=== PATIENT | male | born 1965 | race Caucasian/White ===

== ENCOUNTER 2018-07-13 08:41 | Inpatient (IN) | payer OTHER ==
[2018-07-13 09:14] VITALS: BMI 25.7
--- NOTE | 2018-07-13 10:11 | HP ---
COWS - Scale Resting Pulse: 1= MS 81-100 Sweatin=Flushed/Facial Moisture Restless Observation: 3= Extraneous Movement Pupil Size: 1= Pupils >than Normal Bone or Joint Aches: 2= Severe Diffuse Aches Runny Nose/ Eye Tearin= Runny Nose/Eyes GI Upset > 30mins: 1= Stomach Cramp Tremor Observation: 0= None Yawning Observation: 0= None Anxiety or Irritability: 0= None Goose Flesh Skin: 0=Smooth Skin COWS Score: 12 CIWA Score Nausea/Vomitin Muscle Tremors: 1-None Visible, but [place] Anxiety: 3 Agitation: 1-Slight > Activity Paroxysmal Sweats: 1-Minimal Palms Moist Orientation: 0-Oriented Tacttile Disturbances: 0-None Auditory Disturbances: 0-None Visual Disturbances: 0-None Headache: 0-None Present CIWA-Ar Total Score: 8 - Admission Criteria OASAS Guidelines: Admission for Medically Managed Detox: Requires at least one of the followin. CIWA greater than 12 2. Seizures within the past 24 hours 3. Delirium tremens within the past 24 hours 4. Hallucinations within the past 24 hours 5. Acute intervention needed for co occurring medical disorder 6. Acute intervention needed for co occurring psychiatric disorder 7. Severe withdrawal that cannot be handled at a lower level of care (continued vomiting, continued diarrhea, abnormal vital signs) requiring intravenous medication and/or fluids 8. Admission ROS [facility] Allergies/Adverse Reactions: Allergies Allergy/AdvReac Type Severity Reaction Status Date / Time No Known Allergies Allergy Verified 07/13/18 09:17 History of Present Illness: Patient here for heroin detox. Last use was yesterday morning. Use 5-6 bags / day. Using for the last 15 years. On methadone program, stopped going one month ago, was in program for 1 year, program [address]. Denies overdose. IVDU in jamar UE and inhalation. gets needle from [facility], denies sharing , + re-using , R UE 2 d ago w/ current swelling R UE . EtOH: 6 pack beer/ day. drinking for the last 25 years. last drink yesterday 1 six pack of beer +blackouts. denies seizures, falls. usually first drink in the early afternoon. PCP: occasional use, last use a couple of days ago. cannabis -occasional use Utox: + JULIA, MOP. denies cocaine use tobacco: 2-3 cigarettes per day, took up smoking at age 47. PMHx: denies PSx: denies Psych: denies Sx: unemployed, [facility]. incarcerated and released 1 year ago drug related charges ( sale ) lifetime incarceration5 years , currently denies legal issues . 1 son, not in contact. funds habit with panhandling, stealing , Exam Limitations: No Limitations - Ebola screening Have you traveled outside of the country in the last 21 days: No Have you had contact with anyone from an Ebola affected area: No Have you been sick,other than usual withdrawal symptoms: No Do you have a fever: No - Review of Systems Constitutional: Chills EENT: reports: Other (denies vision isues, denies dysphagia) Respiratory: reports: No Symptoms reported Cardiac: reports: No Symptoms Reported GI: reports: No Symptoms Reported : reports: No Symptoms Reported Musculoskeletal: reports: Muscle Pain Integumentary: reports: No Symptoms Reported Neuro: reports: No Symptoms reported Endocrine: reports: No Symptoms Reported Hematology: reports: No Symptoms Reported Psychiatric: reports: Orientated x3 Patient History - Patient Medical History Hx Asthma: No Hx Chronic Obstructive Pulmonary Disease (COPD): No Hx Cardiac Disorders: No Hx Hypertension: No Hx Seizures: No Hx Diabetes: No Hx Gastrointestinal Disorders: No Hx Genitourinary Disorders: No Hx Sexually Transmitted Disorders: No Hx Renal Disease (ESRD): No Hx Depression: No Hx Suicide Attempt: No Hx Schizophrenia: No - Patient Surgical History Past Surgical History: No Hx Neurologic Surgery: No Hx Cataract Extraction: No Hx Cardiac Surgery: No Hx Lung Surgery: No Hx Breast Surgery: No Hx Breast Biopsy: No Hx Abdominal Surgery: No Hx Appendectomy: No Hx Cholecystectomy: No Hx Genitourinary Surgery: No Hx Section: No Hx Orthopedic Surgery: No Anesthesia Reaction: No - PPD History Previous Implant?: Yes Documented Results: Negative w/o proof Results: NEGATIVE - Smoking Cessation Smoking history: Current some day smoker Aproximately how many cigarettes per day: 3 Hx Chewing Tobacco Use: No Initiated information on smoking cessation: No - Substances Abused Heroin Route: Injection Frequency: Daily Amount used: 5-6 BAGS DAILY Age of first use: 37 Date of Last Use: 07/12/18 Alcohol Route: Oral Frequency: Daily Amount used: 6-8 CANS OF BEER Age of first use: 17 Date of Last Use: 07/12/18 Family Disease History - Family Disease History Family Disease History: Other: Father (A & W), Mother (A & W), Son (A & W) Admission Physical Exam S - Vital Signs Vital Signs: Vital Signs - 24 hr 07/13/18 09:06 Temperature 98.8 F Pulse Rate 89 Respiratory 16 Rate Blood Pressure 139/83 - Physical General Appearance: Yes: Nourished, Disheveled, Moderate Distress HEENTM: Yes: EOMI, Other (anisocoria , heterochromia iridium) Respiratory: Yes: Chest Non-Tender, Lungs Clear, Normal Breath Sounds Neck: Yes: No masses,lesions,Nodules, Trachea in good position Breast: Yes: Breast Exam Deferred Cardiology: Yes: Regular Rhythm, Regular Rate, S1, S2 Abdominal: Yes: Normal Bowel Sounds, Non Tender, Soft Genitourinary: Yes: Within Normal Limits Back: Yes: Normal Inspection Musculoskeletal: Yes: full range of Motion, Gait Steady Extremities: Yes: Erythema, Inflammation, Other (R UE large antecubital abscess w/ edema/ erythema) Neurological: Yes: Alert, Motor Strength 5/5 Integumentary: Yes: Erythema - Addiitonal Findings: patient sent to [facility] ED , returned 3:18 pm , R antecubital abscess lanced , ED instructions ; followup in 2 days , meds Keflex q 8 hrs , Bactrim q 12 hrs x 10 d - Diagnostic (1) Opioid dependence Current Visit: No Status: Acute Qualifiers: Substance use status: with unspecified opioid-induced disorder Qualified Code(s): F11.29 - Opioid dependence with unspecified opioid-induced disorder (2) Alcohol dependence Current Visit: Yes Status: Acute Qualifiers: Substance use status: in withdrawal (3) Nicotine dependence Current Visit: Yes Status: Chronic Qualifiers: Nicotine product type: cigarettes (4) PCP (phencyclidine) abuse Current Visit: Yes Status: Chronic (5) Cellulitis and abscess of upper arm and forearm Current Visit: Yes Status: Acute [facility] Breath Alcohol Content Breath Alcohol Content: 0 Urine Drug Screen - Results Drug Screen Negative: No Urine Drug Screen Results: JULIA-Cocaine, OXY-Oxycodone
[2018-07-13] MEDS ORDERED: guaiFENesin/D-METHORPHAN HB 10 ML UNIT-DOSE CUPS PO PRN (15:21)
[2018-07-13] MEDS ORDERED: MAG HYDROX/AL HYDROX/SIMETH 30 ML UNIT-DOSE CUP PO PRN (15:21)
[2018-07-13] MEDS ORDERED: MAGNESIUM CITRATE 300 ML BOTTLE PO PRN (15:21)
[2018-07-13] MEDS ORDERED: MAGNESIUM HYDROX 2400MG/30ML ORAL SUSPENSION 30 ML CUP PO PRN (15:21)
[2018-07-13] MEDS ORDERED: IBUPROFEN 400 MG TABLET (FP) PO PRN (15:21)
[2018-07-13] MEDS ORDERED: MENTHOL/PHENOL 1 EACH UD MM PRN (15:21)
[2018-07-13] MEDS ORDERED: P-EPHED 60MG/TRIPROLIDI 2.5MG TABLET PO PRN (15:21)
[2018-07-13] MEDS ORDERED: ACETAMINOPHEN 325 MG TABLET (FP) PO PRN (15:21)
[2018-07-13] MEDS ORDERED: NICOTINE POLACRILEX 2 MG GUM BC PRN (15:21)
[2018-07-13] MEDS ORDERED: CEPHALEXIN MONOHYDRATE 500 MG CAPSULE (UD) PO SCH ×2 (15:30→17:30)
[2018-07-13] MEDS ORDERED: METHADONE HCL 10 MG TABLET (FOR DETOX USE ONLY) PO ONE ×2 (16:00→23:00)
[2018-07-13] MEDS: diazePAM 5 MG TABLET PO PRN (16:54)
[2018-07-13] MEDS: SULFAMETHOXAZOLE/TRIMETHOPRIM 800MG/160MG D.S. TABLET PO SCH (22:41)
[2018-07-13] MEDS: MELATONIN 5 MG TABLETS PO PRN (22:41)
[2018-07-13] MEDS: CEPHALEXIN MONOHYDRATE 500 MG CAPSULE (UD) PO SCH (22:41)
[2018-07-13] MEDS: diazePAM 5 MG TABLET PO SCH (22:41)
[2018-07-13] MEDS: THIAMINE HCL 100 MG TABLET (FP) PO SCH (22:41)
[2018-07-14] MEDS: CEPHALEXIN MONOHYDRATE 500 MG CAPSULE (UD) PO SCH ×3 (06:42→23:35)
[2018-07-14] MEDS: diazePAM 5 MG TABLET PO SCH ×3 (06:43→23:36)
[2018-07-14] MEDS ORDERED: METHADONE HCL 10 MG TABLET (FOR DETOX USE ONLY) PO SCH (10:00)
[2018-07-14 10:51] LABS: ALBUMIN 2.9 g/dl (3.4-5.0); ALK PHOS 69 U/L (45-117); ANION GAP 8 MMOL/L (8-16); BILIRUBIN,TOTAL 0.4 mg/dL (0.2-1); BLOOD UREA NITROGEN 12 mg/dL (7-18); CALCIUM 9.5 mg/dL (8.5-10.1); CHLORIDE 108 mmol/L (98-107); CO2 27 mmol/L (21-32); CREATININE 0.9 mg/dL (0.55-1.3); GLUCOSE,RANDOM 114 mg/dL (74-106); POTASSIUM 4.1 mmol/L (3.5-5.1); SGOT/AST 15 U/L (15-37); SGPT/ALT 18 U/L (13-61); SODIUM 143 mmol/L (136-145); TOT PROT 6.4 g/dl (6.4-8.2)
[2018-07-14] MEDS: PRENATAL VITAMINS W/ FOLIC ACID TABLET (FP) PO SCH (10:59)
[2018-07-14] MEDS: SULFAMETHOXAZOLE/TRIMETHOPRIM 800MG/160MG D.S. TABLET PO SCH ×2 (10:59→23:35)
[2018-07-14 12:13] LABS: HEMATOCRIT 37.3 % (35.4-49); HEMOGLOBIN 12.7 GM/dL (11.7-16.9); MCH 31.8 pg (25.7-33.7); MEAN CELL VOLUME 93.6 fl (80-96); MEAN PLT VOLUME 8.7 fl (7.5-11.1); PLATELET COUNT 231 K/MM3 (134-434); RBC 3.99 M/mm3 (4.00-5.60); RDW 14.3 % (11.9-15.9); WHITE BLOOD COUNT 5.4 K/mm3 (4.0-10.0)
--- NOTE | 2018-07-14 15:07 | PN ---
[facility] CIWA - CIWA Score Nausea/Vomitin-No Nausea/No Vomiting Muscle Tremors: 1-None Visible, but [place] Anxiety: 0-No Anxiety, at Ease Agitation: 0-Normal Activity Paroxysmal Sweats: No Perspiration Orientation: 0-Oriented Tacttile Disturbances: 0-None Auditory Disturbances: 0-None Visual Disturbances: 0-None Headache: 0-None Present CIWA-Ar Total Score: 1 [facility] COWS - Scale Resting Pulse: 0= [place] 80 or Below Sweatin= No chills or Flushing Restless Observation: 0= Sits Still Pupil Size: 0= Normal to Room Light Bone or Joint Aches: 0= None Runny Nose/ Eye Tearin= None GI Upset > 30mins: 0= None Tremor Observation of Outstretched Hands: 0= None Yawning Observation: 0= None Anxiety or Irritability: 0= None [facility] Progress Note (SOAP) Subjective: when seen this morning, pt doing well, says Sx controlled with medications. O: Vital Signs - 24 hr 07/13/18 07/13/18 07/13/18 18:08 21:01 22:41 Temperature 98.1 F 98.4 F 98.1 F Pulse Rate 89 83 84 Respiratory 18 19 18 Rate Blood Pressure 143/78 98/58 L 137/77 07/14/18 07/14/18 07/14/18 03:30 08:10 09:18 Temperature 97.9 F 97.2 F L Pulse Rate 77 67 Respiratory 18 18 18 Rate Blood Pressure 103/57 L 102/72 07/14/18 13:47 Temperature 97.3 F L Pulse Rate 98 H Respiratory 18 Rate Blood Pressure 107/79 Laboratory Tests 07/14/18 07/14/18 07:00 07:00 WBC 5.4 RBC 3.99 L Hgb 12.7 Hct 37.3 MCV 93.6 MCH 31.8 MCHC 34.0 RDW 14.3 Plt Count 231 MPV 8.7 Sodium 143 Potassium 4.1 Chloride 108 H Carbon Dioxide 27 Anion Gap 8 BUN 12 Creatinine 0.9 Creat Clearance w eGFR > 60 Random Glucose 114 H Calcium 9.5 Total Bilirubin 0.4 AST 15 ALT 18 Alkaline Phosphatase 69 Total Protein 6.4 Albumin 2.9 L a/p: continue current detox protocols- pt doing well
[2018-07-14] MEDS: THIAMINE HCL 100 MG TABLET (FP) PO SCH (23:36)
[2018-07-15] MEDS: CEPHALEXIN MONOHYDRATE 500 MG CAPSULE (UD) PO SCH ×3 (05:38→22:51)
[2018-07-15] MEDS: diazePAM 5 MG TABLET PO PRN (05:38)
[2018-07-15] MEDS ORDERED: METHADONE HCL 5 MG TABLET (FOR DETOX USE ONLY) PO SCH (10:00)
[2018-07-15] MEDS: diazePAM 5 MG TABLET PO SCH ×2 (10:19→22:51)
[2018-07-15] MEDS: SULFAMETHOXAZOLE/TRIMETHOPRIM 800MG/160MG D.S. TABLET PO SCH ×2 (10:19→22:51)
[2018-07-15] MEDS: PRENATAL VITAMINS W/ FOLIC ACID TABLET (FP) PO SCH (10:19)
[2018-07-15] MEDS ORDERED: BACITRACIN 0.9 GM PACKET TP ONE (13:10)
--- NOTE | 2018-07-15 14:40 | PN ---
[facility] CIWA - CIWA Score Nausea/Vomitin-No Nausea/No Vomiting Muscle Tremors: None Anxiety: 3 Agitation: 0-Normal Activity Paroxysmal Sweats: 2 Orientation: 0-Oriented Tacttile Disturbances: 1-Very Mild Itch/Numbness Auditory Disturbances: 0-None Visual Disturbances: 1-Very Mild Sensitivity Headache: 0-None Present CIWA-Ar Total Score: 7 S COWS - Scale Resting Pulse: 1= [place] 81-100 Sweatin= Chills/Flushing Restless Observation: 0= Sits Still Pupil Size: 0= Normal to Room Light Bone or Joint Aches: 0= None Runny Nose/ Eye Tearin= Nasal Congestion GI Upset > 30mins: 0= None Tremor Observation of Outstretched Hands: 0= None Yawning Observation: 1= 1-2x During Session Anxiety or Irritability: 2=Irritable/Anxious Goose Flesh Skin: 0=Smooth Skin COWS Score: 6 S Progress Note (SOAP) Subjective: Sweating, Anxious, Fatigue. Objective: PATIENT A & O X 3. IN NO ACUTE DISTRESS. 07/15/18 14:42 Vital Signs Temperature 98.1 F 07/15/18 13:18 Pulse Rate 98 H 07/15/18 13:18 Respiratory Rate 18 07/15/18 13:18 Blood Pressure 136/91 07/15/18 13:18 O2 Sat by Pulse Oximetry (%) Laboratory Tests 07/14/18 07/14/18 07/14/18 07:00 07:00 07:00 WBC 5.4 RBC 3.99 L Hgb 12.7 Hct 37.3 MCV 93.6 MCH 31.8 MCHC 34.0 RDW 14.3 Plt Count 231 MPV 8.7 Sodium 143 Potassium 4.1 Chloride 108 H Carbon Dioxide 27 Anion Gap 8 BUN 12 Creatinine 0.9 Creat Clearance w eGFR > 60 Random Glucose 114 H Calcium 9.5 Total Bilirubin 0.4 AST 15 ALT 18 Alkaline Phosphatase 69 Total Protein 6.4 Albumin 2.9 L RPR Titer Nonreactive LABS NOTED. Assessment: 07/15/18 14:42 WITHDRAWAL SYMPTOMS. ABSCESS (DRAINED) / CELLULITIS OF RIGHT ARM (ANTECUBITAL AREA). 07/15/18 14:43 Plan: CONTINUE DETOX. INCREASE DAILY PO FLUID INTAKE. WOUND IN ANTECUBITAL AREA OF RIGHT ARM NOTED (ABSCESS DRAINED AT [facility] ON 07/13/2018). ERYTHEMA, SWELLING NOTED IN SITE SURROUNDING WOUND. DRAINAGE NOTED ON GAUZE COVERING WOUND AT THIS TIME. NO SWELLING, ERYTHEMA, OR DISCAHRGE NOTED ANYWHERE ELSE ON RIGHT ARM OR HAND. PATIENT DENIES PAIN AT WOUND SITE AND ANYWEHERE ELSE ON RIGHT ARM. DRESSING INSTRUCTIONS / CARE: Q 12 HOURS: CLEAN WOUND WITH NORMAL SALINE, THEN PACK WOUND WITH IODOFORM AND THEN COVER WITH GAUZE AND MEDICAL TAPE. NOTE: IODOFORM NOT AVAILABLE ON DETOX UNIT AT THIS TIME, WILL BE AVAILABLE LATER ON IN DAY. x 1 WOUND CARE FOR THIS TIME: CLEAN WOUND WITH NORMAL SALINE, THEN APPLY BACITRACIN, THEN COVER WITH GAUZE AND MEDICAL TAPE. WOUND CARE WITH IODOFORM TO COMMENCE Q12 HOURS STARTING THIS EVENING.
[2018-07-15] MEDS: THIAMINE HCL 100 MG TABLET (FP) PO SCH (22:50)
[2018-07-15] MEDS: MELATONIN 5 MG TABLETS PO PRN (22:51)
[2018-07-16] MEDS: CEPHALEXIN MONOHYDRATE 500 MG CAPSULE (UD) PO SCH ×3 (05:50→22:39)
[2018-07-16] MEDS ORDERED: METHADONE HCL 10 MG TABLET (FOR DETOX USE ONLY) PO SCH (10:00)
[2018-07-16] MEDS: PRENATAL VITAMINS W/ FOLIC ACID TABLET (FP) PO SCH (11:55)
[2018-07-16] MEDS: SULFAMETHOXAZOLE/TRIMETHOPRIM 800MG/160MG D.S. TABLET PO SCH ×2 (11:55→22:39)
[2018-07-16] MEDS: diazePAM 5 MG TABLET PO SCH ×2 (11:55→22:39)
--- NOTE | 2018-07-16 14:36 | PN ---
[facility] Progress Note (SOAP) Subjective: i"m better wound some draining Objective: 07/16/18 14:42 Vital Signs Temperature 97.0 F L 07/16/18 14:10 Pulse Rate 68 07/16/18 14:10 Respiratory Rate 18 07/16/18 14:10 Blood Pressure 113/72 07/16/18 14:10 O2 Sat by Pulse Oximetry (%) Laboratory Tests 07/14/18 07/14/18 07/14/18 07:00 07:00 07:00 WBC 5.4 RBC 3.99 L Hgb 12.7 Hct 37.3 MCV 93.6 MCH 31.8 MCHC 34.0 RDW 14.3 Plt Count 231 MPV 8.7 Sodium 143 Potassium 4.1 Chloride 108 H Carbon Dioxide 27 Anion Gap 8 BUN 12 Creatinine 0.9 Creat Clearance w eGFR > 60 Random Glucose 114 H Calcium 9.5 Total Bilirubin 0.4 AST 15 ALT 18 Alkaline Phosphatase 69 Total Protein 6.4 Albumin 2.9 L RPR Titer Nonreactive pt aox3 in nad rt arm abscess draining slightly wound packed with iodoform and dressing reapplied Assessment: 07/16/18 14:43 withdrawal sx's rt arm abscess improving cont. AB's and wound care 07/16/18 14:44 Plan: cont detox increase fluids
[2018-07-16] MEDS: THIAMINE HCL 100 MG TABLET (FP) PO SCH (22:39)
[2018-07-17] MEDS ORDERED: METHADONE HCL 5 MG TABLET (FOR DETOX USE ONLY) PO SCH (06:00)
[2018-07-17] MEDS: CEPHALEXIN MONOHYDRATE 500 MG CAPSULE (UD) PO SCH ×3 (06:51→22:59)
[2018-07-17] MEDS ORDERED: diazePAM 5 MG TABLET PO SCH (10:00)
[2018-07-17] MEDS: SULFAMETHOXAZOLE/TRIMETHOPRIM 800MG/160MG D.S. TABLET PO SCH ×2 (11:08→22:59)
[2018-07-17] MEDS: PRENATAL VITAMINS W/ FOLIC ACID TABLET (FP) PO SCH (11:08)
--- NOTE | 2018-07-17 13:06 | PN ---
[facility] Progress Note (SOAP) Subjective: Mild shakes and sweats Objective: 07/17/18 13:03 Vital Signs 07/17/18 07/17/18 06:45 09:21 Temperature 97.5 F L 98.1 F Pulse Rate 71 72 Respiratory 18 18 Rate Blood Pressure 101/62 108/66 Laboratory Last Values WBC 5.4 K/mm3 (4.0-10.0) 07/14/18 07:00 RBC 3.99 M/mm3 (4.00-5.60) L 07/14/18 07:00 Hgb 12.7 GM/dL (11.7-16.9) 07/14/18 07:00 Hct 37.3 % (35.4-49) 07/14/18 07:00 MCV 93.6 fl (80-96) 07/14/18 07:00 MCH 31.8 pg (25.7-33.7) 07/14/18 07:00 MCHC 34.0 g/dl (32.0-35.9) 07/14/18 07:00 RDW 14.3 % (11.9-15.9) 07/14/18 07:00 Plt Count 231 K/MM3 (134-434) 07/14/18 07:00 MPV 8.7 fl (7.5-11.1) 07/14/18 07:00 Sodium 143 mmol/L (136-145) 07/14/18 07:00 Potassium 4.1 mmol/L (3.5-5.1) 07/14/18 07:00 Chloride 108 mmol/L (98-107) H 07/14/18 07:00 Carbon Dioxide 27 mmol/L (21-32) 07/14/18 07:00 Anion Gap 8 MMOL/L (8-16) 07/14/18 07:00 BUN 12 mg/dL (7-18) 07/14/18 07:00 Creatinine 0.9 mg/dL (0.55-1.3) 07/14/18 07:00 Creat Clearance w eGFR > 60 (>60) 07/14/18 07:00 Random Glucose 114 mg/dL (74-106) H 07/14/18 07:00 Calcium 9.5 mg/dL (8.5-10.1) 07/14/18 07:00 Total Bilirubin 0.4 mg/dL (0.2-1) 07/14/18 07:00 AST 15 U/L (15-37) 07/14/18 07:00 ALT 18 U/L (13-61) 07/14/18 07:00 Alkaline Phosphatase 69 U/L (45-117) 07/14/18 07:00 Total Protein 6.4 g/dl (6.4-8.2) 07/14/18 07:00 Albumin 2.9 g/dl (3.4-5.0) L 07/14/18 07:00 RPR Titer Nonreactive (NONREACTIVE) 07/14/18 07:00 Labs noted, no panic values Right arm abscess, wound clean, small drainage, no odor, mild marti-wound erythema Assessment: 07/17/18 13:04 Withdrawal sx Resolving right arm abscess Plan: Continue detox Continue local wound care
[2018-07-17] MEDS: THIAMINE HCL 100 MG TABLET (FP) PO SCH (22:59)
[2018-07-18] MEDS: CEPHALEXIN MONOHYDRATE 500 MG CAPSULE (UD) PO SCH (05:52)
[2018-07-18] MEDS: SULFAMETHOXAZOLE/TRIMETHOPRIM 800MG/160MG D.S. TABLET PO SCH (09:15)
[2018-07-18] MEDS: PRENATAL VITAMINS W/ FOLIC ACID TABLET (FP) PO SCH (09:16)
[2018-07-18 09:29] VITALS: BP 114/73; PULSE 76; TEMP 96.4
--- NOTE | 2018-07-18 16:21 | DS ---
[facility] Discharge Summary Admission Date: 07/13/18 Discharge Date: 07/18/18 - History Present History: Alcohol Dependence Additional Comments: pt completed detox. Says he needs to go to [place] today to see his mother before going to rehab tomorrow. Says did well with detox. Arm abscess stable- f/u at rehab - Physical Exam Results Vital Signs: Vital Signs Temperature 96.4 F L 07/18/18 09:28 Pulse Rate 76 07/18/18 09:28 Respiratory Rate 16 07/18/18 09:28 Blood Pressure 114/73 07/18/18 09:28 O2 Sat by Pulse Oximetry (%) - Treatment Hospital Course: Detox Protocol Followed, Detoxed Safely, Responded well, Discharged Condition Good, Rehab Referral Accepted - Medication Discharge Medications: Ambulatory Orders Cephalexin Monohydrate [Keflex -] 500 mg PO Q8H #30 capsule 07/13/18 Sulfamethoxazole/Trimethoprim [Bactrim Ds -] 1 tab PO BID #20 tablet 07/13/18 - AMA Did Patient Leave Against Medical Advice: No
== END 2018-07-18 09:26 | disposition home or self-care (01) | DRG 773 ==
LOC: YASAS 08:41 → Y6N 15:39
PROVIDERS: ADMIT Neuromusculoskeletal Medicine & OMM; ATTEND Neuromusculoskeletal Medicine & OMM
PROC: HZ2ZZZZ Detoxification Services for Substance Abuse Treatment (ICD-10-PCS; principal; 2018-07-13)
DX: F11.23 Opioid dependence with withdrawal (principal); F10.230 Alcohol dependence with withdrawal, uncomplicated; F16.20 Hallucinogen dependence, uncomplicated; F17.210 Nicotine dependence, cigarettes, uncomplicated; L03.113 Cellulitis of right upper limb; L02.413 Cutaneous abscess of right upper limb
CPT/HCPCS: 36415; 80053; 85027; 86593

== ENCOUNTER 2018-07-13 11:14 | Emergency (ER) | payer OTHER ==
[2018-07-13 11:22] VITALS: TEMP 99; BMI 25.7
--- NOTE | 2018-07-13 11:33 | PDOC ---
History of Present Illness - General Chief Complaint: Wound Stated Complaint: ABSCESS Time Seen by Provider: 07/13/18 11:32 History Source: Patient Exam Limitations: No Limitations - History of Present Illness Initial Comments: 07/13/18 12:39 52 YOM with ETOH and heroin abuse presenting from [facility] with right arm abscess. Right forearm abscess x 2 days, after injecting heroin in the area. Increased in size and pain. No f/c, AP, n/v. No meds taken. Allergies: NKA Past Medical History: polysubstance abuse. Social history: [facility]. h/o ETOH and heroin abuse. Surgical history: noncontributory. ROS Constitutional: no fevers or chills. Gastrointestinal: no abdominal pain, nausea or vomiting. MUSCULOSKELETAL: No joint pain and swelling. No neck or back pain. +arm pain. SKIN: +wound, redness, swelling and pain. Hematologic: no easy bruising/bleeding. NEUROLOGIC: No weakness, numbness or tingling. Allergic/Immunologic: no allergies All other systems reviewed and negative, or as documented in HPI. PE: General: Well appearing, awake and alert, NAD. Resp: normal and even respirations, no respiratory distress CVS: 2+ peripheral pulses throughout, no peripheral edema Abdomen: soft, NTND, no peritoneal signs. MSK: KING x4, ROM intact, though limited in Right elbow flex/extension 2/2 pain and swelling. No clubbing or cyanosis. normal bulk and tone. Extremities: +right AC fossa with large fluctuant abscess, with erythema, warmth , swelling and tenderness Neuro: alert; sensation grossly intact. Manager [employer] strength 5/5. 5/5 elbow flex/ extension. Skin: warm and well perfused, cap refill <2 sec, +abscess in right AC fossa. Past History - Past Medical History Allergies/Adverse Reactions: Allergies Allergy/AdvReac Type Severity Reaction Status Date / Time No Known Allergies Allergy Verified 07/13/18 09:17 Home Medications: Ambulatory Orders Cephalexin Monohydrate [Keflex -] 500 mg PO Q8H #30 capsule 07/13/18 Sulfamethoxazole/Trimethoprim [Bactrim Ds -] 1 tab PO BID #20 tablet 07/13/18 Asthma: No Cardiac Disorders: No COPD: No Diabetes: No GI Disorders: No Disorders: No HTN: No Kidney Stones: No Seizures: No - Surgical History Abdominal Surgery: No Appendectomy: No Cardiac Surgery: No Cholecystectomy: No Lung Surgery: No Neurologic Surgery: No Orthopedic Surgery: No - Reproductive History Testicular Surgery: No - Immunization History Immunization Up to Date: Yes - Suicide/Smoking/Psychosocial Hx Smoking History: Current every day smoker Number of Cigarettes Smoked Daily: 3 Information on smoking cessation initiated: Yes Hx Alcohol Use: Yes Drug/Substance Use Hx: Yes (HEROIN) Hx Substance Use Treatment: Yes (LAST TREATMENET AT [facility] APRIL 2018) *Physical Exam - Vital Signs Last Vital Signs Temp Pulse Resp BP Pulse Ox 99.0 F 86 18 125/78 97 07/13/18 11:17 07/13/18 11:17 07/13/18 11:17 07/13/18 11:17 07/13/18 11:17 Moderate Sedation - Procedure Monitoring Vital Signs: Procedure Monitoring Vital Signs Temperature 99.0 F 07/13/18 11:17 Pulse Rate 86 07/13/18 11:17 Respiratory Rate 18 07/13/18 11:17 Blood Pressure 125/78 07/13/18 11:17 O2 Sat by Pulse Oximetry (%) 97 07/13/18 11:17 Procedures - Bedside Ultrasound Bedside Ultrasound: Skin Remarks: 07/13/18 12:40 POCUS MSK performed at bedside for right forearm/AC fossa; views obtained: right AC, transverse and sagittal views. findings include cobblestoning and moderate fluid collection, irregular contours into soft tissue with Swirl sign. Impression: right arm/AC fossa abscess and cellulitis. Medical Decision Making - Medical Decision Making 07/13/18 12:41 hpi as documented VS wnl. no fever, nontoxic, well appearing. abscess and cellulilitis confirmed on ultrasound at bedside, on right AC fossa and arm. Xray neg for FB or bony abnormalities. I&D with resident, see separate note, wound culture sent keflex and bactrim for abx coverage due to extensive cellulitis and large abscess >5cm circumferentially monitor for fevers, pain control, f/u wound cultures and avoid IV and heroin use with risk of infection and contamination. pt verbalized understanding of impression and plan. return in 2 days for wound packing change and clinical recheck. area demarcated of erythema for close monitoring of improvement/progression. DC back to [facility]. with instructions, dispensed abx to their pharmacy. 07/13/18 13:33 *DC/Admit/Observation/Transfer Diagnosis at time of Disposition: Abscess, Right arm cellulitis, Opioid dependence - Discharge Dispostion Disposition: HOME - Prescriptions Prescriptions: Cephalexin Monohydrate [Keflex -] 500 mg PO Q8H #30 capsule Sulfamethoxazole/Trimethoprim [Bactrim Ds -] 1 tab PO BID #20 tablet - Referrals Referrals: [facility] [place] [Provider Group] - Patient Instructions Printed Discharge Instructions: DI for Wound Infection, DI for Incision and Drainage of a Skin Abscess Additional Instructions: please follow up in our emergency department in 48 hours (2 days) for wound check. this must happen to ensure there is proper wound healing. please take your antibiotics as prescribed. please return to the emergency department if you have worsening symptoms or new concerning symptoms such as fever and chills , streaking red up the arm, loss of motor and sensation in the left arm, and skin turning black. thank you. - Post Discharge Activity
[2018-07-13] MEDS ORDERED: ACETAMINOPHEN 325 MG TABLET (FP) PO ONE (11:43)
[2018-07-13] MEDS ORDERED: ACETAMINOPHEN 325 MG TABLET (FP) ONE (11:49)
--- NOTE | 2018-07-13 12:30 | PDOC ---
History of Present Illness - General Chief Complaint: Wound Stated Complaint: ABSCESS Time Seen by Provider: 07/13/18 11:32 History Source: Patient Exam Limitations: No Limitations - History of Present Illness Initial Comments: 07/13/18 12:31 52 yo M with a hx of IVDA (heroin abuse) presents to the emergency department with abscess in the right forearm prior to entering [facility] facilities. Per the patient, he never had an abscess prior to today's presentation. Past History - Past Medical History Allergies/Adverse Reactions: Allergies Allergy/AdvReac Type Severity Reaction Status Date / Time No Known Allergies Allergy Verified 07/13/18 09:17 Home Medications: Ambulatory Orders Cephalexin Monohydrate [Keflex -] 500 mg PO Q8H #30 capsule 07/13/18 Sulfamethoxazole/Trimethoprim [Bactrim Ds -] 1 tab PO BID #20 tablet 07/13/18 Asthma: No Cardiac Disorders: No COPD: No Diabetes: No GI Disorders: No Disorders: No HTN: No Kidney Stones: No Seizures: No - Surgical History Abdominal Surgery: No Appendectomy: No Cardiac Surgery: No Cholecystectomy: No Lung Surgery: No Neurologic Surgery: No Orthopedic Surgery: No - Reproductive History Testicular Surgery: No - Immunization History Immunization Up to Date: Yes - Suicide/Smoking/Psychosocial Hx Smoking History: Current every day smoker Number of Cigarettes Smoked Daily: 3 Information on smoking cessation initiated: Yes Hx Alcohol Use: Yes Drug/Substance Use Hx: Yes (HEROIN) Hx Substance Use Treatment: Yes (LAST TREATMENET AT [facility] APRIL 2018) *Physical Exam - Vital Signs Last Vital Signs Temp Pulse Resp BP Pulse Ox 99.0 F 86 18 125/78 97 07/13/18 11:17 07/13/18 11:17 07/13/18 11:17 07/13/18 11:17 07/13/18 11:17 Moderate Sedation - Procedure Monitoring Vital Signs: Procedure Monitoring Vital Signs Temperature 99.0 F 07/13/18 11:17 Pulse Rate 86 07/13/18 11:17 Respiratory Rate 18 07/13/18 11:17 Blood Pressure 125/78 07/13/18 11:17 O2 Sat by Pulse Oximetry (%) 97 07/13/18 11:17 Procedures - Incision and Drainage I&D Site: Right: Arm (anterior superior to cubital fossa) Betadine cleansed: No (chloraprep) Anesthesia: 1% Lidocaine Volume(ml): 4 Blade Size: 11 Attempts: 1 Iodinated Packin/ in Plain Packing: No Complications: none Dressing: Yes ED Treatment Course - Medications Given in the ED: ED Medications Discontinued Medications Generic Name Dose Route Start Last Admin Trade Name Parish PRN Reason Stop Dose Admin Acetaminophen 975 mg 07/13/18 11:43 07/13/18 11:50 Tylenol - PO 07/13/18 11:44 975 mg ONCE ONE Administration *DC/Admit/Observation/Transfer Diagnosis at time of Disposition: Abscess, Right arm cellulitis Opioid dependence Qualifiers: Substance use status: with unspecified opioid-induced disorder Qualified Code(s ): F11.29 - Opioid dependence with unspecified opioid-induced disorder - Discharge Dispostion Disposition: HOME Decision to Admit order: No - Prescriptions Prescriptions: Cephalexin Monohydrate [Keflex -] 500 mg PO Q8H #30 capsule Sulfamethoxazole/Trimethoprim [Bactrim Ds -] 1 tab PO BID #20 tablet - Referrals Referrals: [facility] [place] [facility] [place] [Provider Group] - Patient Instructions Printed Discharge Instructions: DI for Incision and Drainage of a Skin Abscess , DI for Wound Infection Additional Instructions: please follow up in our emergency department in 48 hours (2 days) for wound check. this must happen to ensure there is proper wound healing. please take your antibiotics as prescribed. please return to the emergency department if you have worsening symptoms or new concerning symptoms such as fever and chills , streaking red up the arm, loss of motor and sensation in the left arm, and skin turning black. thank you. - Post Discharge Activity
[2018-07-13] MEDS ORDERED: CEPHALEXIN MONOHYDRATE 500 MG CAPSULE (UD) PO ONE (13:01)
[2018-07-13] MEDS ORDERED: SULFAMETHOXAZOLE/TRIMETHOPRIM 800MG/160MG D.S. TABLET PO ONE (13:02)
[2018-07-13] MEDS ORDERED: CEPHALEXIN MONOHYDRATE 500 MG CAPSULE (UD) ONE (13:08)
[2018-07-13] MEDS ORDERED: SULFAMETHOXAZOLE/TRIMETHOPRIM 800MG/160MG D.S. TABLET ONE (13:09)
[2018-07-13 14:53] VITALS: BP 131/67; PULSE 77
== END 2018-07-13 14:54 | disposition home or self-care (01) ==
LOC: JER 11:14
PROC: 0J9G0ZZ Drainage of Right Lower Arm Subcutaneous Tissue and Fascia, Open Approach (ICD-10-PCS; principal; 2018-07-13)
PROC: BH47ZZZ Ultrasonography of Upper Extremity (ICD-10-PCS; 2018-07-13)
DX: L02.413 Cutaneous abscess of right upper limb (principal); L03.113 Cellulitis of right upper limb; F11.20 Opioid dependence, uncomplicated
CPT/HCPCS: 10160; 73090-TC-RT-FY; 76882-TC-LT-FY; 87070; 87077; 87205; 99281-25

== ENCOUNTER 2018-11-19 08:48 | Inpatient (IN) | payer OTHER ==
[2018-11-19 10:02] VITALS: BMI 26.6
--- NOTE | 2018-11-19 11:12 | HP ---
COWS - Scale Resting Pulse: 0= [place] 80 or Below Sweatin= Chills/Flushing Restless Observation: 3= Extraneous Movement Pupil Size: 0= Normal to Room Light Bone or Joint Aches: 2= Severe Diffuse Aches Runny Nose/ Eye Tearin= Nasal Congestion GI Upset > 30mins: 1= Stomach Cramp Tremor Observation: 0= None Yawning Observation: 0= None Anxiety or Irritability: 2=Irritable/Anxious Goose Flesh Skin: 0=Smooth Skin COWS Score: 10 CIWA Score Nausea/Vomitin-No Nausea/No Vomiting Muscle Tremors: None Anxiety: 4-Mod. Anxious/Guarded Agitation: 4-Moderately Restless Paroxysmal Sweats: No Perspiration Orientation: 0-Oriented Tacttile Disturbances: 0-None Auditory Disturbances: 0-None Visual Disturbances: 0-None Headache: 0-None Present CIWA-Ar Total Score: 8 - Admission Criteria OASAS Guidelines: Admission for Medically Managed Detox: Requires at least one of the followin. CIWA greater than 12 2. Seizures within the past 24 hours 3. Delirium tremens within the past 24 hours 4. Hallucinations within the past 24 hours 5. Acute intervention needed for co occurring medical disorder 6. Acute intervention needed for co occurring psychiatric disorder 7. Severe withdrawal that cannot be handled at a lower level of care (continued vomiting, continued diarrhea, abnormal vital signs) requiring intravenous medication and/or fluids 8. Admission [facility] Allergies/Adverse Reactions: Allergies Allergy/AdvReac Type Severity Reaction Status Date / Time No Known Allergies Allergy Verified 11/19/18 09:53 History of Present Illness: Patient here requesting detox from opiate use , prior detox at this facility Jun 2018 . Last use was yesterday afternoon , current daily use 4 bags /day x 15 years IVDU in [facility] . On methadone program x 1 year @ [facility] , stopped going 4 month ago, highest dose 50 mg w/ continued use . OD x 4 , Narcan 2018 , needles from exchange, denies sharing , + re-using , + abscess latest Jun 2018 during previous admission at this facility , pt very grateful for referral and tx . EtOH: 6 pack beer/ day x 25 years. latest yesterday , occasional tremors , occasional blackouts. denies seizures, or falls.. PCP: 2 x/ week last use a couple of days ago. cannabis -1 x/month tobacco: occasional 3-4 cigarettes per day since age 47. PMHx: denies PSHx: denies Psych: denies Sx: unemployed,homeless . incarcerated and released 1 year ago drug related charges ( sale ) lifetime incarceration 5 years , currently denies legal issues . 1 son, not in contact. funds habit with panhandling, shoplifting . Exam Limitations: Clinical Condition - Ebola screening Have you traveled outside of the country in the last 21 days: No (N) Have you had contact with anyone from an Ebola affected area: No Do you have a fever: No - Review of Systems Constitutional: See HPI EENT: reports: See HPI Respiratory: reports: No Symptoms reported Cardiac: reports: No Symptoms Reported GI: reports: See HPI : reports: No Symptoms Reported Musculoskeletal: reports: See HPI Integumentary: reports: See HPI Neuro: reports: No Symptoms reported Endocrine: reports: No Symptoms Reported Psychiatric: reports: Orientated x3, Agitated, Anxious Patient History - Patient Medical History Hx Asthma: No Hx Chronic Obstructive Pulmonary Disease (COPD): No Hx Cardiac Disorders: No Hx Hypertension: No Hx Seizures: No Hx Diabetes: No Hx Gastrointestinal Disorders: No Hx Genitourinary Disorders: No Hx Sexually Transmitted Disorders: No Hx Renal Disease (ESRD): No Hx Depression: No Hx Suicide Attempt: No Hx Schizophrenia: No - Patient Surgical History Past Surgical History: No Hx Neurologic Surgery: No Hx Cataract Extraction: No Hx Cardiac Surgery: No Hx Lung Surgery: No Hx Breast Surgery: No Hx Breast Biopsy: No Hx Abdominal Surgery: No Hx Appendectomy: No Hx Cholecystectomy: No Hx Genitourinary Surgery: No Hx Section: No Hx Orthopedic Surgery: No Anesthesia Reaction: No - PPD History Date: 07/15/18 Results: NEGATIVE - Smoking Cessation Smoking history: Current every day smoker Aproximately how many cigarettes per day: 3 Hx Chewing Tobacco Use: No Initiated information on smoking cessation: No - Substances abused Heroin Substance route: Injection Frequency: Daily Amount used: 5-6 bags Age of first use: 37 Date of last use: 11/18/18 Alcohol Substance route: Oral Frequency: Daily Amount used: 6-10 beers Age of first use: 17 Date of last use: 11/18/18 PCP Substance route: Smoking Frequency: 1-2 times per week Amount used: 1 bag Age of first use: 29 Date of last use: 11/17/18 Family Disease History - Family Disease History Family Disease History: CA: Mother (A & W, HTN , lung CA ), Other: Father (A & W , dementia , tobacco/ cannabis / etoh use ), Mother, Son (no contact x 20 years ( age approx 24 ) ) Admission Physical Exam BHS - Vital Signs Vital Signs: Vital Signs - 24 hr 11/19/18 09:43 Temperature 97.4 F L Pulse Rate 67 Respiratory 18 Rate Blood Pressure 147/88 - Physical General Appearance: Yes: Disheveled, Moderate Distress, Anxious HEENTM: Yes: EOMI, Hearing grossly Normal, Normocephalic, Normal Voice, Nasal Congestion, Rhinorrhea, Other (poor dentition) Respiratory: Yes: Chest Non-Tender, Lungs Clear, Normal Breath Sounds, No Respiratory Distress, No Accessory Muscle Use Neck: Yes: No masses,lesions,Nodules, Trachea in good position Cardiology: Yes: Regular Rhythm, Regular Rate, S1, S2 Abdominal: Yes: Normal Bowel Sounds, Non Tender, Soft Musculoskeletal: Yes: full range of Motion, Gait Steady Extremities: Yes: Non-Tender Neurological: Yes: Alert, Motor Strength 5/5 Integumentary: Yes: Warm - Diagnostic (1) Alcohol dependence Current Visit: Yes Status: Acute Qualifiers: Substance use status: uncomplicated Qualified Code(s): F10.20 - Alcohol dependence, uncomplicated (2) Opioid dependence Current Visit: Yes Status: Acute Qualifiers: Substance use status: uncomplicated Qualified Code(s): F11.20 - Opioid dependence, uncomplicated (3) Nicotine dependence Current Visit: Yes Status: Chronic Qualifiers: Nicotine product type: cigarettes Breathalyzer - Breathalyzer Breathalyzer: 0 Urine Drug Screen - Test Device Lot number: [id number] Expiration date: 08/12/20 - Control Is test valid?: Yes - Results Drug screen NEGATIVE: No Urine drug screen results: MOP-Opiates Inpatient Rehab Admission - Rehab Decision to Admit Inpatient rehab admission?: No
[2018-11-19] MEDS ORDERED: MENTHOL/PHENOL 1 EACH UD MM PRN (11:19)
[2018-11-19] MEDS ORDERED: diazePAM 5 MG TABLET PO PRN (11:19)
[2018-11-19] MEDS ORDERED: cloNIDine HCL 0.1 MG TABLET PO PRN (11:19)
[2018-11-19] MEDS ORDERED: MELATONIN 5 MG TABLETS PO PRN (11:19)
[2018-11-19] MEDS ORDERED: MAG HYDROX/AL HYDROX/SIMETH 30 ML UNIT-DOSE CUP PO PRN (11:19)
[2018-11-19] MEDS ORDERED: hydrOXYzine PAMOATE 25 MG CAPSULE (FP) PO PRN (11:19)
[2018-11-19] MEDS ORDERED: IBUPROFEN 400 MG TABLET (FP) PO PRN (11:19)
[2018-11-19] MEDS ORDERED: ACETAMINOPHEN 325 MG TABLET (FP) PO PRN ×2 (11:19)
[2018-11-19] MEDS ORDERED: BISMUTH SUBSALICYLATE 262 MG/15 ML BTL PO PRN (11:19)
[2018-11-19] MEDS ORDERED: MAGNESIUM CITRATE 300 ML BOTTLE PO PRN (11:19)
[2018-11-19] MEDS ORDERED: MAGNESIUM HYDROX 2400MG/30ML ORAL SUSPENSION 30 ML CUP PO PRN (11:19)
[2018-11-19] MEDS ORDERED: METHADONE HCL 10 MG TABLET (FOR DETOX USE ONLY) PO ONE (12:45)
[2018-11-19] MEDS: diazePAM 5 MG TABLET PO SCH ×2 (13:04→22:59)
[2018-11-19] MEDS: THIAMINE HCL 100 MG TABLET (FP) PO SCH (22:59)
[2018-11-20] MEDS: diazePAM 5 MG TABLET PO SCH ×3 (06:53→22:14)
[2018-11-20] MEDS ORDERED: METHADONE HCL 5 MG TABLET (FOR DETOX USE ONLY) PO ONE (10:00)
[2018-11-20] MEDS: PRENATAL VITAMINS W/ FOLIC ACID TABLET (FP) PO SCH (10:22)
[2018-11-20 11:05] LABS: ALBUMIN 3.3 g/dl (3.4-5.0); BILIRUBIN,TOTAL 0.4 mg/dL (0.2-1); BLOOD UREA NITROGEN 14.6 mg/dL (7-18); CALCIUM 10.1 mg/dL (8.5-10.1); POTASSIUM 4.5 mmol/L (3.5-5.1); TOT PROT 6.6 g/dl (6.4-8.2)
[2018-11-20 11:54] LABS: HEMATOCRIT 40.3 % (35.4-49); HEMOGLOBIN 13.3 GM/dL (11.7-16.9); MCH 29.5 pg (25.7-33.7); MCHC 33.1 g/dl (32.0-35.9); MEAN CELL VOLUME 89.1 fl (80-96); RBC 4.52 M/mm3 (4.00-5.60); RDW 16.1 % (11.9-15.9); WHITE BLOOD COUNT 5.2 K/mm3 (4.0-10.0)
--- NOTE | 2018-11-20 12:03 | PN ---
[facility] CIWA - CIWA Score Nausea/Vomitin-No Nausea/No Vomiting Muscle Tremors: 3 Anxiety: 2 Agitation: 4-Moderately Restless Paroxysmal Sweats: 2 Orientation: 0-Oriented Tacttile Disturbances: 0-None Auditory Disturbances: 0-None Visual Disturbances: 0-None Headache: 0-None Present CIWA-Ar Total Score: 11 [facility] COWS - Scale Resting Pulse: 0= [place] 80 or Below Sweatin= Chills/Flushing Restless Observation: 1= Difficult to Sit Still Pupil Size: 0= Normal to Room Light Bone or Joint Aches: 2= Severe Diffuse Aches Runny Nose/ Eye Tearin= Nasal Congestion GI Upset > 30mins: 0= None Tremor Observation of Outstretched Hands: 2= Slight Tremor Visible Yawning Observation: 2= >3x During Session Anxiety or Irritability: 2=Irritable/Anxious Goose Flesh Skin: 0=Smooth Skin COWS Score: 11 [facility] Progress Note (SOAP) Subjective: sweats restless chills shakes interrupted sleep anxiety Objective: 11/20/18 12:03 Vital Signs Temperature 97.9 F 11/20/18 09:31 Pulse Rate 75 11/20/18 09:31 Respiratory Rate 16 11/20/18 09:31 Blood Pressure 121/69 11/20/18 09:31 O2 Sat by Pulse Oximetry (%) Laboratory Tests 11/20/18 08:00 Sodium 139 Potassium 4.5 Chloride 108 H Carbon Dioxide 29 Anion Gap 2 L BUN 14.6 Creatinine 1.0 Est GFR (CKD-EPI)AfAm 100.55 Est GFR (CKD-EPI)NonAf 86.76 Random Glucose 98 Calcium 10.1 Total Bilirubin 0.4 AST 17 ALT 21 Alkaline Phosphatase 65 Total Protein 6.6 Albumin 3.3 L labs noted rest of labs pending aaox3 ambulating no acute distress Assessment: 11/20/18 12:03 withdrawal sx Plan: continue detox increase fluids pending labs
[2018-11-20 17:03] LABS: PLATELET COUNT 241 K/MM3 (134-434)
[2018-11-20] MEDS: THIAMINE HCL 100 MG TABLET (FP) PO SCH (22:14)
[2018-11-21] MEDS ORDERED: diazePAM 5 MG TABLET PO ONE (06:00)
[2018-11-21] MEDS ORDERED: METHADONE HCL 10 MG TABLET (FOR DETOX USE ONLY) PO ONE (10:00)
[2018-11-21] MEDS: PRENATAL VITAMINS W/ FOLIC ACID TABLET (FP) PO SCH (10:22)
--- NOTE | 2018-11-21 13:26 | PN ---
[facility] CIWA - CIWA Score Nausea/Vomitin-Mild Nausea/No Vomiting Muscle Tremors: 2 Anxiety: 2 Agitation: 2 Paroxysmal Sweats: 2 Orientation: 0-Oriented Tacttile Disturbances: 0-None Auditory Disturbances: 0-None Visual Disturbances: 0-None Headache: 0-None Present CIWA-Ar Total Score: 9 S COWS - Scale Resting Pulse: 0= [place] 80 or Below Sweatin= Chills/Flushing Restless Observation: 1= Difficult to Sit Still Pupil Size: 0= Normal to Room Light Bone or Joint Aches: 1= Mild Discomfort Runny Nose/ Eye Tearin= None GI Upset > 30mins: 1= Stomach Cramp Tremor Observation of Outstretched Hands: 2= Slight Tremor Visible Yawning Observation: 0= None Anxiety or Irritability: 2=Irritable/Anxious Goose Flesh Skin: 0=Smooth Skin COWS Score: 8 [facility] Progress Note (SOAP) Subjective: Sweating, chills, tremor Objective: 11/21/18 13:25 Last Vital Signs Temp Pulse Resp BP Pulse Ox 98.1 F 67 16 112/65 11/21/18 09:15 11/21/18 09:15 11/21/18 09:15 11/21/18 09:15 Laboratory Tests 11/20/18 11/20/18 08:00 08:00 WBC 5.2 RBC 4.52 Hgb 13.3 Hct 40.3 MCV 89.1 MCH 29.5 MCHC 33.1 RDW 16.1 H Plt Count 241 MPV 9.0 Sodium 139 Potassium 4.5 Chloride 108 H Carbon Dioxide 29 Anion Gap 2 L BUN 14.6 Creatinine 1.0 Est GFR (CKD-EPI)AfAm 100.55 Est GFR (CKD-EPI)NonAf 86.76 Random Glucose 98 Calcium 10.1 Total Bilirubin 0.4 AST 17 ALT 21 Alkaline Phosphatase 65 Total Protein 6.6 Albumin 3.3 L Labs reviewed Assessment: 11/21/18 13:26 Withdrawal symptoms Plan: Continue detox Encouraged PO water hydration
[2018-11-21] MEDS: THIAMINE HCL 100 MG TABLET (FP) PO SCH (22:43)
[2018-11-22] MEDS ORDERED: METHADONE HCL 5 MG TABLET (FOR DETOX USE ONLY) PO ONE ×2 (06:00→09:32)
--- NOTE | 2018-11-22 08:46 | DS ---
[facility] Detox Discharge Summary Admission Date: 11/19/18 Discharge Date: 11/22/18 - History Present History: Alcohol Dependence, Opioid Dependence, Pcp Dependence - Physical Exam Results Vital Signs: Vital Signs Temperature 96.6 F L 11/22/18 06:31 Pulse Rate 59 L 11/22/18 06:31 Respiratory Rate 18 11/22/18 06:31 Blood Pressure 117/75 11/22/18 06:31 O2 Sat by Pulse Oximetry (%) - Treatment Hospital Course: Detox Protocol Followed, Detoxed Safely, Responded well, Discharged Condition Good, Rehab Referral Accepted - Medication Discharge Medications: Ambulatory Orders NK [No Known Home Medication] 11/19/18 - Diagnosis (1) Alcohol dependence Current Visit: Yes Status: Chronic Qualifiers: Substance use status: uncomplicated Qualified Code(s): F10.20 - Alcohol dependence, uncomplicated (2) Opioid dependence Current Visit: Yes Status: Chronic Qualifiers: Substance use status: uncomplicated Qualified Code(s): F11.20 - Opioid dependence, uncomplicated (3) Nicotine dependence Current Visit: Yes Status: Chronic Qualifiers: Nicotine product type: cigarettes Substance use status: uncomplicated Qualified Code(s): F17.210 - Nicotine dependence, cigarettes, uncomplicated (4) PCP (phencyclidine) abuse Current Visit: Yes Status: Chronic - AMA Did Patient Leave Against Medical Advice: No ([facility])
[2018-11-22 09:14] VITALS: BP 116/65; PULSE 69; TEMP 97.3
--- NOTE | 2018-11-22 09:14 | PN ---
S Progress Note Note: pt refused his methadone 5mg at 6am this morning. Pt states he refused because he thought he getting valium. A one time dose of methadone 5mg ordered.
[2018-11-22] MEDS: PRENATAL VITAMINS W/ FOLIC ACID TABLET (FP) PO SCH (11:11)
== END 2018-11-22 10:10 | disposition home or self-care (01) | DRG 773 ==
LOC: YASAS 08:48 → Y6N 12:23
PROVIDERS: ADMIT Surgery; ATTEND Surgery
PROC: HZ2ZZZZ Detoxification Services for Substance Abuse Treatment (ICD-10-PCS; principal; 2018-11-19)
DX: F11.23 Opioid dependence with withdrawal (principal); F10.230 Alcohol dependence with withdrawal, uncomplicated; F16.10 Hallucinogen abuse, uncomplicated; F17.210 Nicotine dependence, cigarettes, uncomplicated; Z59.0 Homelessness
CPT/HCPCS: 36415; 80053; 85027; J0735